=== PATIENT | male | born 1995 | race Caucasian/White ===

== ENCOUNTER 2019-02-09 21:29 | Emergency (ER) | payer OTHER ==
[2019-02-10] MEDS ORDERED: PERCOCET 5/325 PO ONE (00:45)
[2019-02-10] MEDS ORDERED: NACL 0.9% IR ONE (00:46)
[2019-02-10] MEDS ORDERED: BOOSTRIX IM ONE (00:46)
[2019-02-10] MEDS ORDERED: XYLOCAINE 1%/ EPI 1:100,000 INFILTRATI ONE (00:47)
--- NOTE | 2019-02-10 00:49 | Emergency Department Report ---
- General Chief Complaint: Wound/Laceration Stated Complaint: R ARM INJURY Source: patient Mode of arrival: Ambulatory Limitations: No Limitations - History of Present Illness Initial Comments: 23-year-old male presents to the emergency room for left arm laceration. Patient reports that he cut his arm on trying to get in a motor vehicle. Patient does admit to drinking alcohol. Patient denies any past medical history denies any surgical history reports he has no allergies to medications and currently takes no medications on a daily basis. He is unaware of when his last tetanus shot was given. -: This evening Time: 18:00 Extremity Location: Left: Forearm Place: home Patient Tetanus UTD: No Context: accidental, sharp object use Associated Symptoms: pain Treatments Prior to Arrival: bandage - Related Data Previous Rx's Medication Instructions Recorded Last Taken Type Acetaminophen/Codeine [Tylenol 1 tab PO Q4HR PRN #15 tablet 02/10/19 Unknown Rx /Codeine # 3 tab] cephALEXin [Keflex] 500 mg PO Q12HR #20 cap 02/10/19 Unknown Rx Allergies Allergy/AdvReac Type Severity Reaction Status Date / Time No Known Allergies Allergy Unverified 02/09/19 21:45 ED Review of Systems ROS: Stated complaint: R ARM INJURY Other details as noted in HPI Comment: All other systems reviewed and negative Skin: other (cut to right arm) ED Past Medical Hx - Past Medical History Previous Medical History?: No - Surgical History Past Surgical History?: No - Social History Smoking Status: Current Every Day Smoker Substance Use Type: Alcohol - Medications Home Medications: Home Medications Medication Instructions Recorded Confirmed Last Taken Type Acetaminophen/Codeine [Tylenol 1 tab PO Q4HR PRN #15 tablet 02/10/19 Unknown Rx /Codeine # 3 tab] cephALEXin [Keflex] 500 mg PO Q12HR #20 cap 02/10/19 Unknown Rx ED Physical Exam - General Limitations: No Limitations General appearance: alert, in no apparent distress - Head Head exam: Present: atraumatic, normocephalic - Eye Eye exam: Present: normal appearance - ENT ENT exam: Present: mucous membranes moist - Neurological Exam Neurological exam: Present: alert, oriented X3 - Psychiatric Psychiatric exam: Present: normal affect, normal mood - Expanded Skin Exam Expanded Type of lesion: Present: laceration Distribution of rash: RUE ED Course Vital Signs 02/09/19 02/10/19 21:42 01:28 Temperature 98 F Pulse Rate 86 Respiratory 18 18 Rate Blood Pressure 109/70 O2 Sat by Pulse 98 Oximetry - Laceration /Wound Repair Right Arm Wound Location: upper extremity (right) Wound Length (cm): 9 Wound's Depth, Shape: into muscle, flap Wound Explored: no foreign body removed Betadine Prep?: Yes Anesthesia: Lidocaine w/ Epi Volume Anesthetic (ccs): 12 Wound Debrided: minimal Wound Repaired With: sutures Suture Size/Type: 3:0, proline Number of Sutures: 14 Sterile Dressing Applied?: Yes Progress: Tolerated procedure well ED Medical Decision Making - Radiology Data Radiology results: report reviewed Patient: LISET JON MR#: [id number] : 1995 Acct:[id number] Age/Sex: 23 / M ADM Date: 02/09/19 Loc: ED Attending Dr: Ordering Physician: JONNATHAN BELCHER Date of Service: 02/10/19 Procedure(s): XR forearm RT Accession Number(s): [id number] cc: JONNATHAN BELCHER Fluoro Time In Minutes: EXAM: XR FOREARM RT HISTORY: laceration to rt forearm TECHNIQUE: 2 views COMPARISON: None available. FINDINGS: There is no acute bony fracture, or joint subluxation or dislocation seen. No evidence for inflammatory or degenerative arthritis is seen. No focal bone erosion or sclerosis is seen. Soft tissue irregularity of the anterior medial forearm; rule out is traumatic change and soft tissue mass/neoplasm. Clinical correlation is advised. No soft tissue emphysema, radiodense soft tissue abnormality or foreign body is seen. IMPRESSION: 1. No acute bony fracture, or joint subluxation or dislocation seen. 2. Soft tissue irregularity of the anterior medial forearm; rule out is traumatic change and soft tissue mass/neoplasm. Clinical correlation is advised. 3. No soft tissue emphysema, radiodense soft tissue abnormality or foreign body seen. This document is electronically signed by Greg Rivera MD., February 10 2019 02:00:46 AM ET Transcribed By: [facility] Dictated By: GREG RIVERA Electronically Authenticated By: GREG RIVERA Signed Date/Time: 02/10/19 0203 DD/ TD/TT: 02/10/19 0109 - Medical Decision Making 23-year-old male comes in for laceration to the right forearm about 6 PM. X-ray was ordered patient was given 2 Percocet for pain management suture repair instructions to follow-up in 7-10 days patient is placed on Keflex and Tylenol 3. Critical care attestation.: If time is entered above; I have spent that time in minutes in the direct care of this critically ill patient, excluding procedure time. ED Disposition Clinical Impression: Laceration of right forearm Qualifiers: Encounter type: initial encounter Qualified Code(s): S51.811A - Laceration without foreign body of right forearm, initial encounter Disposition: - TO HOME OR SELFCARE Is pt being admited?: No Does the pt Need Aspirin: No Condition: Stable Instructions: Suture Care (ED), Laceration (ED) Additional Instructions: Complete antibiotics as prescribed. Pain medication as needed. Do not operate heavy machinery or drink alcohol while taking Tylenol No. 3. Please return back to the emergency room in 7-10 days to have sutures removed. Keep wound clean and dry change bandage daily. Prescriptions: cephALEXin [Keflex] 500 mg PO Q12HR #20 cap Acetaminophen/Codeine [Tylenol /Codeine # 3 tab] 1 tab PO Q4HR PRN #15 tablet PRN Reason: Pain Referrals: DRE FIELDS MD [Primary Care Provider] - 3-5 Days Forms: Work/School Release Form(ED)
--- NOTE | 2019-02-10 02:03 | XRay Report ---
EXAM: XR FOREARM RT HISTORY: laceration to rt forearm TECHNIQUE: 2 views COMPARISON: None available. FINDINGS: There is no acute bony fracture, or joint subluxation or dislocation seen. No evidence for inflammato ry or degenerative arthritis is seen. No focal bone erosion or sclerosis is seen. Soft tissue irregularity of the anterior medial forearm; rule out is traumatic change and soft tissue mass/neoplasm. Clinical correlation is advised. No soft tissue emphysema, radiodense soft tissue a bnormality or foreign body is seen. IMPRESSION: 1. No acute bony fracture, or joint subluxation or dislocation seen. 2. Soft tissue irregularity of the anterior medial forearm; rule out is traumatic change and soft ti ssue mass/neoplasm. Clinical correlation is advised. 3. No soft tissue emphysema, radiodense soft tissue abnormality or foreign body seen. This document is electronically signed by Kristofer Stephen MD., February 10 2019 02:00:46 AM ET
[2019-02-10 08:10] VITALS: BP 114/70
== END 2019-02-10 03:10 | disposition home or self-care (01) ==
LOC: ED 21:29
DX: S51.811A Laceration without foreign body of right forearm, initial encounter (principal); F17.200 Nicotine dependence, unspecified, uncomplicated; W26.9XXA Contact with unspecified sharp object(s), initial encounter; Y93.89 Activity, other specified; Y92.009 Unspecified place in unspecified non-institutional (private) residence as the place of occurrence of the external cause; Y99.8 Other external cause status
CPT/HCPCS: 90471; 90715